=== PATIENT | female | born 1960 | race Caucasian/White ===

== ENCOUNTER 2019-07-12 12:23 | Inpatient (IN) | payer BC ==
[2019-07-11 08:45] VITALS: BMI 30.5
[2019-07-12] MEDS ORDERED: BUPIVACAINE HCL/PF 0.25% (2.5MG/ML) 10 ML VIAL ONE (14:04)
[2019-07-12] MEDS ORDERED: IBUPROFEN 800 MG/8 ML IJ IVPB PRN (14:07)
[2019-07-12] MEDS ORDERED: IBUPROFEN 600 MG TABLET (FP) PO PRN (14:07)
[2019-07-12] MEDS ORDERED: oxyCODONE HCL 5 MG TABLET PO PRN (14:07)
[2019-07-12] MEDS ORDERED: ONDANSETRON 4 MG/2 ML VIAL IVPUSH PRN (14:07)
[2019-07-12] MEDS ORDERED: ELECTROLYTE-148 SOLN 1,000 ML IV SCH (14:15)
[2019-07-12] MEDS ORDERED: VECURONIUM BROMIDE 10 MG VIAL ONE (14:16)
[2019-07-12] MEDS ORDERED: PROPOFOL 20 ML ONE ×2 (14:17)
[2019-07-12] MEDS ORDERED: SUCCINYLCHOLINE CHLORIDE 200 MG/10 ML SYRINGE ONE (14:18)
[2019-07-12] MEDS ORDERED: MIDAZOLAM HCL 2 MG/2 ML SINGLE DOSE VIAL ONE (14:18)
[2019-07-12] MEDS ORDERED: ceFAZolin SODIUM 1 GM VIAL IVPB ONE (14:31)
[2019-07-12] MEDS ORDERED: LIDOCAINE HCL/PF 2% SDV 5ML VIAL ONE (14:31)
[2019-07-12] MEDS ORDERED: KETAMINE HCL 200 MG/20 ML VIAL ONE (14:47)
[2019-07-12] MEDS ORDERED: EPHEDRINE SULFATE/0.9% NACL/PF 50 MG/10 ML SYRINGE NR ONE (14:51)
[2019-07-12] MEDS ORDERED: BUPIVACAINE HCL/PF 0.5% (5 MG/ML) 30 ML VIAL IJ ONE (15:56)
[2019-07-12] MEDS ORDERED: KETOROLAC TROMETHAMINE 30 MG/1 ML VIAL ONE (16:26)
[2019-07-12] MEDS ORDERED: LACTATED RINGERS SOLUTION 1,000 ML IV SCH (17:00)
--- NOTE | 2019-07-12 19:24 | OP ---
Operative Note - Note: Operative Date: 07/12/19 Pre-Operative Diagnosis: 59yo postmenopausal with thick endometrium, persistent HERBERT 1, bilateral ovarian cysts Operation: Total laparoscopic hysterectomy, Bilateral salpingoophorectomy, Cystoscopy Findings: No masses, no lesions, Right ovarian cyst, simple appearing normal appendix Right pelvic adhesions - cecum to right pelvic side wall Post-Operative Diagnosis: Same as Pre-op Surgeon: Chantelle Bob Blind Hanger: Chino Willson Anesthesiologist/ASSET PROTECTION REPRESENTATIVE: Collin Zapata Anesthesia: General Estimated Blood Loss (mls): 20 Drains, Volume Out (mls): 800 Fluid Volume Replaced (mls): 1,650 Operative Report Dictated: Yes
[2019-07-13] MEDS: CEFAZOLIN 2 GM/D5W 2 GM/50 ML ML IVPB SCH ×2 (06:59→07:49)
[2019-07-13 07:47] LABS: MCH 31.6 pg (25.7-33.7); MCHC 34.1 g/dl (32.0-36.0); MEAN CELL VOLUME 92.7 fl (80-96); PLATELET COUNT 231 K/MM3 (134-434); RBC 4.43 M/mm3 (3.60-5.2); RDW 13.2 % (11.6-15.6)
[2019-07-13] MEDS ORDERED: ATENOLOL 25 MG TABLET (FP) PO SCH (10:00)
--- NOTE | 2019-07-13 11:30 | PN ---
Progress Note (short form) - Note Progress Note: Anesthesia postop note 59 y/o F s/p GA for Laparoscopic hysterectomy POD#1, vss, aaox3, no complaints. No anesthesia complications.
[2019-07-13 17:16] VITALS: BP 135/63; PULSE 83; TEMP 98.1
--- NOTE | 2019-07-13 18:09 | DS ---
Physical Examination Vital Signs: Vital Signs Temperature 98.1 F 07/13/19 16:15 Pulse Rate 83 07/13/19 16:15 Respiratory Rate 20 07/13/19 16:15 Blood Pressure 135/63 07/13/19 16:15 O2 Sat by Pulse Oximetry (%) 95 07/12/19 22:00 Labs: CBC, BMP 07/13/19 06:55 Discharge Summary Reason For Visit: THICK. ENDOMETRIUM/OVAR CYST/TESTOSTERONE SER ELEV - Instructions - Home Medications Comprehensive Discharge Medication List: Ambulatory Orders Atenolol [Tenormin] 25 mg PO DAILY 07/11/19
--- NOTE | 2019-07-16 12:08 | OP ---
DATE OF OPERATION: 07/12/2019 PREOPERATIVE DIAGNOSES: A 59-year-old postmenopausal woman with thick endometrium, persistent HERBERT-1, bilateral ovarian cysts. OPERATION: Total laparoscopic hysterectomy, bilateral salpingo-oophorectomy, cystoscopy. FINDINGS: Right ovarian cyst, appearing simple; normal appendix; right pelvic adhesions, cecum to right pelvic sidewall. POSTOPERATIVE DIAGNOSIS: A 59-year-old postmenopausal woman with thick endometrium, persistent HERBERT-1, bilateral ovarian cysts. SURGEON: Rayshawn Bob MD [employer] VICE PRESIDENT: Chino Willson MD ANESTHESIOLOGIST: Collin Zapata CRNA ANESTHESIA: General. DESCRIPTION OF THE OPERATIVE PROCEDURE: After assuring informed consent, the patient was brought to the operating room, where she was placed in dorsal lithotomy position. The perineum and abdomen were prepped and draped in sterile fashion. The CooperSurgical manipulator was placed into the vagina through the cervix so that uterus could be manipulated during the procedure. Nichols catheter placed sterilely. Subsequently the umbilical incision was created with a scalpel, a 5-mm incision. A Veress needle was introduced into the abdomen, abdomen was insufflated. Excellent placement of the needle was verified by normal saline drop test. The Optiview trocar was placed under direct visualization, visualizing intraabdominal organs. Above findings were noted. Subsequently, 2 more 5-mm trocars were placed in right and left lateral lower quadrants. The bilateral ureters were visualized and the right adnexa was grasped with atraumatic grasper and LigaSure was used to first cauterize in multiple segments and subsequently cut infundibulopelvic ligament, with good visualization of the underlying ureter. The tube and ovary were dissected off the broad ligament. Excellent hemostasis throughout. The round ligament was dissected subsequently after cauterization on the right side and bladder flap was created on the right side of the bladder. Subsequently, identical procedure was performed on the left. The infundibulopelvic ligament was cauterized with LigaSure and dissected and subsequently left fallopian tube and ovary were dissected off the broad ligament with good visualization of underlying organs and vasculature. Round ligament was cauterized on the left and also bladder flap was continued on the left. The bladder was brought downward and subsequently the uterine arteries were double cauterized and dissected on each consecutive side. Additional downward bites abutting the cervix was taken on each side, dissecting the uterine artery further away from the cervical stump. The artery was cauterized and dissected off. Subsequently the cervix was dissected off along the cervicovaginal junction using the manipulator as a guide. Subsequently the uterus was removed through the vagina. Uterus, tubes and ovaries were sent to Pathology as 1 piece. The pelvic peritoneal washings were collected at the beginning of the procedure and were also sent to Pathology. Subsequently, additional port was created on the patient's left and V-Loc Prolene suture was used to close vaginal cuff in running fashion. Needle was removed through the 5-mm port. Excellent hemostasis was noted. Abdomen and pelvis were irrigated with normal saline. Subsequently cystoscopy was performed and bilateral ureteral jets were visualized and no sutures were noted in the bladder. Subsequently all the gas was removed from the abdomen and all ports were removed as well and skin was closed with 4-0 Biosyn with interrupted stitches. All instruments were removed from the abdomen and pelvis. Instrument and sponge count was correct x2. Estimated blood loss was 20 mL. The patient received 1650 mL of IV fluids and drained 800 mL of urine. She tolerated procedure well and was brought to the recovery room in stable condition. RAYSHAWN BOB M.D. [id number]
--- NOTE | 2019-07-18 15:27 | PATH ---
Surgical Pathology Report Patient Name: VONDA CARTER [facility]. Rec. #: [id number] /Age/Gender: 1960 (Age: 59) / F Account: [id number] Location: [facility] MED/SURG Taken: 07/12/2019 Received: 07/13/2019 Reported: 07/18/2019 Physicians: Chantelle Bob M.D. Specimen(s) Received UTERUS, CERVIX, BILATERAL OVARIES AND FALLOPIAN TUBES Clinical History Bilateral ovarian cyst Final Diagnosis UTERUS, CERVIX, OVARIES AND FALLOPIAN TUBES, BILATERAL, LAPAROSCOPIC TOTAL HYSTERECTOMY WITH BILATERAL SALPINGO-OOPHORECTOMY: CERVIX WITHOUT SIGNIFICANT PATHOLOGIC FINDINGS. ENDOMETRIAL POLYP. ATROPHIC ENDOMETRIUM. MYOMETRIUM WITHOUT SIGNIFICANT PATHOLOGIC FINDINGS. BILATERAL OVARIES WITH CYSTIC FOLLICLES. RIGHT FALLOPIAN TUBE WITH ENDOSALPINGOSIS. LEFT FALLOPIAN TUBE WITHOUT SIGNIFICANT PATHOLOGIC FINDINGS. Electronically Signed Kimberlyn Tan M.D. Gross Description Received in formalin labeled "uterus, cervix, bilateral fallopian tubes, bilateral ovaries," is an 87 g uterus with an attached cervix and bilateral attached adnexa. The specimen measures 8.5 cm from superior to inferior, 5.0 cm from left to right and 4.0 cm from anterior to posterior. The serosa is casanova-escobar and smooth with focal defects. The attached cervix measures 3 cm in length and averages 2.6 cm in diameter. The ectocervix is casanova, smooth and glistening. The endocervix is unremarkable. The endometrial cavity measures 3.8 cm in length and averages 2.5 cm in diameter. There is a 2.5 x 0.7 x 0.3 cm casanova, polypoid lesion at the fundus. The remaining endometrium is casanova-pink and averages 0.1 cm in thickness. The myometrium is casanova-salazar and averages 1.8 cm in thickness. No intramural nodules are identified. The left fimbriated fallopian tube measures 4 cm in length. The outer surface is escobar purple and smooth. Sectioning reveals an unremarkable lumen. The left ovary measures 2.8 x 2.1 x 2.0 cm. Sectioning reveals a 1.0 cm in greatest dimension ovarian cyst containing clear serous fluid. The remaining ovarian parenchyma is casanova, solid and firm. The right fimbriated fallopian tube measures 4.5 cm in length. The outer surface is salazar purple and smooth. Sectioning reveals an unremarkable lumen. The right ovary measures 3.6 x 2.8 x 2.0 cm. The outer surface is casanova and smooth with a focal cystic appearance. Sectioning reveals a 2.3 cm in greatest dimension cystic lesion containing clear serous fluid. The cyst lining is smooth. The remaining ovarian parenchyma is casanova, solid and firm. Hair Blender sections are submitted in 14 cassettes as follows: 1-anterior cervix; 2-posterior cervix; 3-anterior endomyometrium with fundic polyp; 4-additional anterior endomyometrium; 6-9-dzjythtco endomyometrium; 7-left fallopian tube fimbria; 8-cross sections of left fallopian tube; 9-left ovary with cyst; 10-additional left ovary; 11-right fallopian tube fimbria; 12-cross sections of right fallopian tube; 13-right ovarian cyst; 14-additional right ovary. 07/14/2019 [facility]07/14/2019
== END 2019-07-13 19:42 | disposition home or self-care (01) | DRG 743 ==
LOC: JASU-SURG 12:23 → EDSTATUS 14:00 → JSAMEDAYSX 14:07 → J8W 19:43
PROVIDERS: ADMIT Obstetrics & Gynecology; ATTEND Obstetrics & Gynecology
PROC: 0UT74ZZ Resection of Bilateral Fallopian Tubes, Percutaneous Endoscopic Approach (ICD-10-PCS; 2019-07-12)
PROC: 0UT24ZZ Resection of Bilateral Ovaries, Percutaneous Endoscopic Approach (ICD-10-PCS; 2019-07-12)
PROC: 0DNW4ZZ Release Peritoneum, Percutaneous Endoscopic Approach (ICD-10-PCS; 2019-07-12)
PROC: 0UT9FZZ Resection of Uterus, Via Natural or Artificial Opening With Percutaneous Endoscopic Assistance (ICD-10-PCS; principal; 2019-07-12 14:30)
DX: N87.0 Mild cervical dysplasia (principal); R93.89 Abnormal findings on diagnostic imaging of other specified body structures; N83.292 Other ovarian cyst, left side; N83.291 Other ovarian cyst, right side; N73.6 Female pelvic peritoneal adhesions (postinfective); Z78.0 Asymptomatic menopausal state
CPT/HCPCS: 36415; 85027; 86850; 86900; 86901; 87070; 87075; 87205; 88307-TC; 94760